=== PATIENT | female | born 1935 | race Caucasian/White ===

== ENCOUNTER → 2017-06-12 | Outpatient (CLI) | payer MEDICARE, OTHER ==
[2016-03-02 14:04] VITALS: BP 148/70
[~2017-06-12] MED LIST: AMLO5TAB4 PO; ASPI-482 PO; ATOR10TA PO; CARV25TA PO; CLON1PAT11 TD; Clonidine TD; DIPH25CA58 PO; FLUV40CA3 PO; GLIP5TAB10 PO; GLIP5TAB3 PO; INSU100I17 SQ; LISI40TA PO; Lisinopril PO; MULT-246 PO; Multivitamins,Therapeutic PO; SPIR25TA3 PO; TRIA1TAB PO
--- NOTE | 2017-06-14 09:26 | KCIC ---
CT abdomen/pelvis INDICATION: Evaluate cystic mass of pancreas. 1 year follow-up. TECHNIQUE: CT abdomen/pelvis without IV contrast with multiplanar reformats. COMPARISON: Previous CT abdomen/pelvis from 11/05/2015 FINDINGS: Limited study due to lack of IV contrast. Heart is normal in size. Trace pericardial effusion in the inferior aspect. No pleural effusion. Stable 2 mm nodule in the right lower lobe adjacent to major fissure (series 2 image 12). Low attenuating lesions seen in the segment 3 of the liver, stable. Another low attenuating lesion seen in segment 7, stable. 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 Noncontrast appearance of the spleen, gallbladder, kidneys is within normal limits. Stable low attenuating bilateral adrenal lesions, the largest on the right measuring 2.6 x 2.4 cm most likely adenomas. Pancreas is atrophic. No pancreatic calcifications. Lack of contrast severely limits evaluation of pancreas. Previously seen cystic lesions are not visualized on the current study. There are multiple peripancreatic lymph nodes, the largest in the pancreatic or duodenal groove measuring 3.0 x 1.5 cm, previously 2.4 x 1.2 cm. Gastrohepatic ligament recess lymph node measures 2.2 x 1.3 cm, previously 2.1 x 1.4 cm. Multiple other prominent parapancreatic lymph nodes noted. Colon is redundant with large amount of stool is seen in the colon. Sigmoid diverticulosis. Uterus is present with multiple calcified fibroids. No free pelvic fluid or adenopathy. Bladder is seen obvious without solid mass. Atherosclerotic disease of infrarenal aorta. Osteopenia of the bones. No suspicious bony lesion. Lower lumbar spine facet arthropathy. IMPRESSION: Highly suboptimal study due to lack of IV contrast. 1. Morphology of pancreas is not well delineated due to the atrophy. However, no discrete large cystic lesions in the pancreas. Underlying pancreatic mass not ruled out. MRI of abdomen without and with IV contrast is recommended. 2. Multiple peripancreatic lymph nodes, one of them showing interval increase in size. These are nonspecific and may be reactive. 3. Bilateral adrenal nodules compatible with adenomas. 4. Sigmoid diverticulosis without diverticulitis. Electronically signed by: Wil Barrios DO (06/13/2017 8:27 AM) [id number]
== END | disposition home or self-care (01) ==
LOC: KCIC CT 15:14
PROVIDERS: ATTEND Family Medicine
DX: K86.2 Cyst of pancreas (principal); K57.30 Diverticulosis of large intestine without perforation or abscess without bleeding; D36.7 Benign neoplasm of other specified sites
CPT/HCPCS: 74176

== ENCOUNTER → 2017-07-10 | Outpatient (CLI) | payer MEDICARE, OTHER ==
[2016-03-02 14:04] VITALS: BP 148/70
--- NOTE | 2017-07-10 16:05 | KCIC ---
CT of the head without contrast History:Spastic left hemiparesis Technique: Standard noncontrast images are obtained. Exposure: One or more of the following individualized dose reduction techniques were utilized for this examination: 1. Automated exposure control 2. Adjustment of the mA and/or kV according to patient size 3. Use of iterative reconstruction technique. Comparison: None Findings: Posterior fossa is unremarkable. No evidence of acute intracranial hemorrhage, mass effect, midline shift or abnormal extra-axial fluid collection. Johnson-white matter distinction is intact. Mild generalized atrophy. Mild vascular calcifications. Visualized orbits are unremarkable. Visualized paranasal sinuses and mastoids are clear. No acute calvarial abnormality Impression: No evidence of acute intracranial abnormality. Electronically signed by: Iron Rashid MD (07/10/2017 4:02 PM) [id number]
== END | disposition home or self-care (01) ==
LOC: KCIC CT 15:25
PROVIDERS: ATTEND Physical Medicine & Rehabilitation
DX: G81.94 Hemiplegia, unspecified affecting left nondominant side (principal); R25.2 Cramp and spasm
CPT/HCPCS: 70450

== ENCOUNTER → 2017-07-24 | Outpatient (CLI) | payer MEDICARE, OTHER ==
[2016-03-02 14:04] VITALS: BP 148/70
[2017-07-24] MEDS: GADOBUTROL 7.5 MMOL/7.5 ML VIAL IV ONE (16:25)
--- NOTE | 2017-07-24 17:16 | KCIC ---
MRI Brain with and without contrast History: Left hemiparesthesia, left-sided weakness for several months Technique: Multiplanar, multi sequential pre and postcontrast MR imaging was performed of the brain. Contrast: 6 cc Gadavist Comparison: None Findings: There is some motion degradation. There is no evidence of recent infarct or cytotoxic edema. Ventricular size is within normal limits. There is [id number] supratentorial atrophy more greatly affecting the parietal lobes. There is mild T2 and FLAIR hyperintense abnormality of the supratentorial periventricular white matter, also [id number] signal abnormality of the justina. There is no significant hemosiderin deposition of the brain parenchyma.There is no significant midline shift, intraaxial mass effect, or focal abnormal extra-axial fluid collection. There is no significant signal abnormality of the brain parenchyma. There is no nodular parenchymal or leptomeningeal enhancement. There is preservation of the major intracranial flow-voids at the skull base. The cerebellar tonsils are normal in location. There is no significant abnormality of the pineal gland or pituitary gland. Paranasal sinuses are overall aerated. The mastoid air cells are aerated. There is nonspecific mild heterogeneity of marrow signal of the nonexpanded clivus. Both globes are slightly misshapen posteriorly. Meckel's caves are somewhat dilated greater on the right. Impression: 1. There is no evidence of recent infarct or abnormal intracranial enhancement. Minimal T2 and FLAIR hyperintense abnormality of the supratentorial white matter and to a somewhat greater degree of the justina is nonspecific although most commonly due to chronic microvascular ischemic disease. There is ytqd-[id number] atrophy greater of the parietal lobes. 2. Both globes are somewhat misshapen posteriorly, question if eye pressures have been assessed? Electronically signed by: Bradley Anderson MD (07/24/2017 5:13 PM) [id number]
== END | disposition home or self-care (01) ==
LOC: KCIC MRI 15:30
PROVIDERS: ATTEND Physical Medicine & Rehabilitation
DX: I13.0 Hypertensive heart and chronic kidney disease with heart failure and stage 1 through stage 4 chronic kidney disease, or unspecified chronic kidney disease (principal); N18.9 Chronic kidney disease, unspecified; I50.9 Heart failure, unspecified; I99.8 Other disorder of circulatory system; R53.1 Weakness; R20.2 Paresthesia of skin
CPT/HCPCS: 70553; 82565; A9585

== ENCOUNTER → 2017-08-28 | Outpatient (CLI) | payer MEDICARE, OTHER ==
[2016-03-02 14:04] VITALS: BP 148/70
--- NOTE | 2017-08-28 17:17 | RAD ---
Left lower extremity venous ultrasound, 08/28/2017 : History: Left leg swelling Duplex evaluation including grayscale, color flow and spectral Doppler analysis was performed. The femoral and popliteal veins show no filling defects to suggest DVT. The visualized calf veins are unremarkable. IMPRESSION: There is no sonographic evidence of deep vein thrombosis in the left lower extremity
== END | disposition home or self-care (01) ==
LOC: US 15:54
PROVIDERS: ATTEND Physical Medicine & Rehabilitation
DX: M79.89 Other specified soft tissue disorders (principal)
CPT/HCPCS: 93971

== ENCOUNTER → 2018-02-28 | Outpatient (CLI) | payer MEDICARE, OTHER | END | disposition home or self-care (01) | DX: R91.8 Other nonspecific abnormal finding of lung field (principal); I13.0 Hypertensive heart and chronic kidney disease with heart failure and stage 1 through stage 4 chronic kidney disease, or unspecified chronic kidney disease; E11.22 Type 2 diabetes mellitus with diabetic chronic kidney disease; N18.3 Chronic kidney disease, stage 3 (moderate); E78.5 Hyperlipidemia, unspecified; E78.00 Pure hypercholesterolemia, unspecified; Z79.899 Other long term (current) drug therapy | CPT/HCPCS: 71045 ==

== ENCOUNTER 2018-04-04 17:09 | Emergency (ER) | payer MEDICARE, OTHER ==
[2018-04-04 18:20] LABS: ADD MAN DIFF? NO
[2018-04-04 18:23] LABS: BASO % 0 % (0-3); EOS # 0.1 x10^3/uL (0.0-0.7); EOS % 1 % (0-3); HEMATOCRIT 38.8 % (36.0-47.0); HEMOGLOBIN 13.1 g/dL (12.0-15.5); LYMPH # 1.3 x10^3/uL (1.0-4.8); LYMPH % 13 % (24-48); MEAN CORPUSCULAR HEMOGLOBIN 32 pg (25-35); MEAN CORPUSCULAR HGB CONC 34 g/dL (31-37); MEAN CORPUSCULAR VOLUME 96 fL (79-100); MONO # 1.1 x10^3/uL (0.0-1.1); MONO % 11 % (0-9); NEUT # 7.5 x10^3uL (1.8-7.7); NEUT % 75 % (31-73); PLATELET COUNT 227 x10^3/uL (140-400); RED BLOOD COUNT 4.04 x10^6/uL (3.50-5.40); RED CELL DISTRIBUTION WIDTH 14.9 % (11.5-14.5)
[2018-04-04 18:33] LABS: INR 1.1 (0.8-1.1)
[2018-04-04 18:41] LABS: ANION GAP 8 (6-14); BLOOD UREA NITROGEN 34 mg/dL (7-20); BUN/CREATININE RATIO 26 (6-20); CALCIUM 9.3 mg/dL (8.5-10.1); CARBON DIOXIDE 26 mmol/L (21-32); CHLORIDE 99 mmol/L (98-107); CREATININE 1.3 mg/dL (0.6-1.0); GLUCOSE 107 mg/dL (70-99); POTASSIUM 3.8 mmol/L (3.5-5.1); SODIUM 133 mmol/L (136-145)
[2018-04-04 18:46] LABS: ALBUMIN 3.7 g/dL (3.4-5.0); ALK PHOS 120 U/L (46-116); ALT (SGPT) 22 U/L (14-59); AST (SGOT) 20 U/L (15-37); TOTAL BILIRUBIN 0.5 mg/dL (0.2-1.0); TOTAL PROTEIN 7.5 g/dL (6.4-8.2)
== END 2018-04-04 21:16 | disposition home or self-care (01) ==
LOC: ER 17:09
DX: R60.1 Generalized edema (principal); E11.9 Type 2 diabetes mellitus without complications; I10 Essential (primary) hypertension
CPT/HCPCS: 36415; 80053; 85025; 85610; 93971; 99285-25

== ENCOUNTER → 2018-05-29 | Outpatient (CLI) | payer MEDICARE, OTHER ==
[2018-04-04 20:53] VITALS: BP 156/68
[~2018-05-29] MED LIST changes: +ATOR20TA58 PO; +FURO20TA3 PO; +LISI-130 PO; -LISI40TA PO; +METF500T9 PO; -SPIR25TA3 PO; +SPIR25TA5 PO
[2018-05-29 10:17] LABS: HEMATOCRIT 52.3 % (36.0-47.0); HEMOGLOBIN 18.2 g/dL (12.0-15.5); RED BLOOD COUNT 5.81 x10^6/uL (3.50-5.40); RED CELL DISTRIBUTION WIDTH 15.1 % (11.5-14.5); WHITE BLOOD COUNT 15.7 x10^3/uL (4.0-11.0)
[2018-05-29 10:35] LABS: CALCIUM 10.8 mg/dL (8.5-10.1); CREATININE 1.9 mg/dL (0.6-1.0); GFR 25.1
[2018-05-29 10:51] LABS: POTASSIUM 2.2 mmol/L (3.5-5.1)
[2018-05-30 01:16] LABS: HEMOGLOBIN A1C 7.4 % (4.8-5.6)
== END | disposition home or self-care (01) ==
LOC: SPEC 00:20
PROVIDERS: ATTEND Family Medicine
DX: I13.0 Hypertensive heart and chronic kidney disease with heart failure and stage 1 through stage 4 chronic kidney disease, or unspecified chronic kidney disease (principal); E11.22 Type 2 diabetes mellitus with diabetic chronic kidney disease; N18.3 Chronic kidney disease, stage 3 (moderate); I50.32 Chronic diastolic (congestive) heart failure; E78.00 Pure hypercholesterolemia, unspecified
CPT/HCPCS: 36415; 80048; 83036; 85027

== ENCOUNTER → 2018-06-01 | Outpatient (CLI) | payer MEDICARE, OTHER ==
[2018-04-04 20:53] VITALS: BP 156/68
[2018-06-01 06:17] LABS: CALCIUM 8.3 mg/dL (8.5-10.1); GFR 52.7
[2018-06-01 06:30] LABS: POTASSIUM 2.9 mmol/L (3.5-5.1)
== END | disposition home or self-care (01) ==
LOC: SPEC 05:26
PROVIDERS: ATTEND Family Medicine
DX: I13.0 Hypertensive heart and chronic kidney disease with heart failure and stage 1 through stage 4 chronic kidney disease, or unspecified chronic kidney disease (principal); E11.22 Type 2 diabetes mellitus with diabetic chronic kidney disease; N18.3 Chronic kidney disease, stage 3 (moderate); I50.9 Heart failure, unspecified; E78.00 Pure hypercholesterolemia, unspecified
CPT/HCPCS: 36415; 80048

== ENCOUNTER → 2018-06-03 | Outpatient (CLI) | payer MEDICARE, OTHER ==
[2018-04-04 20:53] VITALS: BP 156/68
[2018-06-03 06:13] LABS: CALCIUM 8.1 mg/dL (8.5-10.1); CREATININE 1.2 mg/dL (0.6-1.0); GFR 42.7; POTASSIUM 3.1 mmol/L (3.5-5.1)
== END | disposition home or self-care (01) ==
LOC: SPEC 02:19
PROVIDERS: ATTEND Family Medicine
DX: E78.5 Hyperlipidemia, unspecified (principal); I13.0 Hypertensive heart and chronic kidney disease with heart failure and stage 1 through stage 4 chronic kidney disease, or unspecified chronic kidney disease; E11.22 Type 2 diabetes mellitus with diabetic chronic kidney disease; I50.9 Heart failure, unspecified; N18.3 Chronic kidney disease, stage 3 (moderate); E78.00 Pure hypercholesterolemia, unspecified; Z80.0 Family history of malignant neoplasm of digestive organs; Z86.73 Personal history of transient ischemic attack (TIA), and cerebral infarction without residual deficits; Z88.8 Allergy status to other drugs, medicaments and biological substances
CPT/HCPCS: 36415; 80048

== ENCOUNTER → 2018-06-05 | Outpatient (CLI) | payer MEDICARE, OTHER ==
[2018-04-04 20:53] VITALS: BP 156/68
[2018-06-05 05:47] LABS: CALCIUM 8.6 mg/dL (8.5-10.1); CREATININE 1.2 mg/dL (0.6-1.0); GFR 42.7; POTASSIUM 3.5 mmol/L (3.5-5.1)
== END | disposition home or self-care (01) ==
LOC: SPEC 00:04
PROVIDERS: ATTEND Family Medicine
DX: E87.6 Hypokalemia (principal); I13.0 Hypertensive heart and chronic kidney disease with heart failure and stage 1 through stage 4 chronic kidney disease, or unspecified chronic kidney disease; E11.22 Type 2 diabetes mellitus with diabetic chronic kidney disease; I50.9 Heart failure, unspecified; N18.3 Chronic kidney disease, stage 3 (moderate); E78.5 Hyperlipidemia, unspecified; E78.00 Pure hypercholesterolemia, unspecified; Z79.899 Other long term (current) drug therapy; Z86.73 Personal history of transient ischemic attack (TIA), and cerebral infarction without residual deficits
CPT/HCPCS: 36415; 80048

== ENCOUNTER → 2018-06-20 | Outpatient (CLI) | payer MEDICARE, OTHER ==
[2018-04-04 20:53] VITALS: BP 156/68
[2018-06-20 15:51] LABS: BASO % 0 % (0-3); EOS # 0.1 x10^3/uL (0.0-0.7); EOS % 1 % (0-3); HEMATOCRIT 39.7 % (36.0-47.0); HEMOGLOBIN 13.7 g/dL (12.0-15.5); LYMPH # 1.2 x10^3/uL (1.0-4.8); LYMPH % 11 % (24-48); MEAN CORPUSCULAR HEMOGLOBIN 31 pg (25-35); MEAN CORPUSCULAR HGB CONC 34 g/dL (31-37); MEAN CORPUSCULAR VOLUME 89 fL (79-100); MONO % 10 % (0-9); NEUT % 78 % (31-73); PLATELET COUNT 335 x10^3/uL (140-400); RED BLOOD COUNT 4.45 x10^6/uL (3.50-5.40); RED CELL DISTRIBUTION WIDTH 16.7 % (11.5-14.5); WHITE BLOOD COUNT 10.3 x10^3/uL (4.0-11.0)
[2018-06-20 15:56] LABS: CREATININE 1.1 mg/dL (0.6-1.0); GFR 47.2
== END | disposition home or self-care (01) ==
LOC: SPEC 15:35
PROVIDERS: ATTEND Family Medicine
DX: R05 Cough (principal); I13.0 Hypertensive heart and chronic kidney disease with heart failure and stage 1 through stage 4 chronic kidney disease, or unspecified chronic kidney disease; E11.22 Type 2 diabetes mellitus with diabetic chronic kidney disease; I50.32 Chronic diastolic (congestive) heart failure; N18.3 Chronic kidney disease, stage 3 (moderate); E78.00 Pure hypercholesterolemia, unspecified; Z86.73 Personal history of transient ischemic attack (TIA), and cerebral infarction without residual deficits; Z72.0 Tobacco use; Z80.0 Family history of malignant neoplasm of digestive organs
CPT/HCPCS: 36415; 80048; 85025

== ENCOUNTER → 2018-06-20 | Outpatient (CLI) | payer MEDICARE ==
[2018-04-04 20:53] VITALS: BP 156/68
--- NOTE | 2018-06-20 17:31 | RAD ---
Portable chest, 06/20/2018: HISTORY: Cough and shortness of breath Comparison is made to a study from 02/28/2018. The patient is rotated to the left. A left-sided transvenous pacemaker is in place with 2 leads extending into the right heart. The heart is enlarged. There is calcific plaquing of the aorta. There are prominent pulmonary markings on the right the appearance suggests diffuse infiltrate, although patient rotation may be accentuating the appearance. The left lower chest has largely cleared since the previous study. There is mild residual blunting of the left lateral costophrenic angle which may be due to scarring or a small amount residual pleural fluid. No significant left lung infiltrate is seen. IMPRESSION: 1. Cardiomegaly and aortic atherosclerosis. 2. Mild diffuse right pulmonary infiltrates suggesting pneumonia versus unilateral pulmonary edema. Follow-up PA and lateral chest radiographs are suggested for further evaluation, if clinically indicated. 3. Improved aeration of the left base with possible minimal residual pleural fluid. Electronically signed by: Alonso Keen MD (06/20/2018 5:27 PM) [facility]
== END | disposition home or self-care (01) ==
LOC: RAD 14:49 → EDSTATUS 07-16 18:26
PROVIDERS: ATTEND Family Medicine
DX: I70.0 Atherosclerosis of aorta (principal); R91.8 Other nonspecific abnormal finding of lung field; I13.0 Hypertensive heart and chronic kidney disease with heart failure and stage 1 through stage 4 chronic kidney disease, or unspecified chronic kidney disease; E11.22 Type 2 diabetes mellitus with diabetic chronic kidney disease; I50.32 Chronic diastolic (congestive) heart failure; N18.3 Chronic kidney disease, stage 3 (moderate); Z86.73 Personal history of transient ischemic attack (TIA), and cerebral infarction without residual deficits; Z95.0 Presence of cardiac pacemaker; Z79.899 Other long term (current) drug therapy; Z88.8 Allergy status to other drugs, medicaments and biological substances; Z80.0 Family history of malignant neoplasm of digestive organs
CPT/HCPCS: 71045

== ENCOUNTER → 2018-06-24 | Outpatient (CLI) | payer MEDICARE ==
[2018-04-04 20:53] VITALS: BP 156/68
--- NOTE | 2018-06-24 16:36 | RAD ---
Portable chest, 06/24/2018: HISTORY: Cough Comparison is made to a study from 06/20/2018. A left-sided transvenous pacemaker remains in place with 2 leads extending into the right heart. Moderate cardiomegaly is unchanged. There is calcific plaquing the aorta. Increased right pulmonary markings persist. No left lung infiltrate is seen. There is blunting of the left lateral costophrenic angle which may be due to scarring or a small amount of pleural fluid. IMPRESSION: Persistent right lung infiltrates. Follow-up PA and lateral chest radiography versus CT scanning is suggested for further evaluation, if clinically indicated. Electronically signed by: Alonso Keen MD (06/24/2018 4:32 PM) [facility]
== END | disposition home or self-care (01) ==
LOC: RAD 09:23 → EDSTATUS 07-16 18:20
PROVIDERS: ATTEND Family Medicine
DX: R91.8 Other nonspecific abnormal finding of lung field (principal); I13.0 Hypertensive heart and chronic kidney disease with heart failure and stage 1 through stage 4 chronic kidney disease, or unspecified chronic kidney disease; E11.22 Type 2 diabetes mellitus with diabetic chronic kidney disease; I50.32 Chronic diastolic (congestive) heart failure; N18.3 Chronic kidney disease, stage 3 (moderate); E87.6 Hypokalemia; E78.5 Hyperlipidemia, unspecified; E78.00 Pure hypercholesterolemia, unspecified; Z85.828 Personal history of other malignant neoplasm of skin; Z88.8 Allergy status to other drugs, medicaments and biological substances
CPT/HCPCS: 71045

== ENCOUNTER → 2018-06-27 | Outpatient (CLI) | payer MEDICARE, OTHER ==
[2018-04-04 20:53] VITALS: BP 156/68
[2018-06-27 05:57] LABS: CALCIUM 9.7 mg/dL (8.5-10.1); GFR 52.7
[2018-06-27 06:02] LABS: POTASSIUM 2.7 mmol/L (3.5-5.1)
== END | disposition home or self-care (01) ==
LOC: SPEC 01:03
PROVIDERS: ATTEND Family Medicine
DX: R05 Cough (principal)
CPT/HCPCS: 36415; 80048

== ENCOUNTER → 2018-07-01 | Outpatient (CLI) | payer MEDICARE, OTHER ==
[2018-04-04 20:53] VITALS: BP 156/68
[2018-07-01 11:56] LABS: CALCIUM 9.7 mg/dL (8.5-10.1); CREATININE 1.2 mg/dL (0.6-1.0); GFR 42.7
[2018-07-01 12:08] LABS: POTASSIUM 2.3 mmol/L (3.5-5.1)
== END | disposition home or self-care (01) ==
LOC: SPEC 10:55 → EDSTATUS 07-16 18:30
PROVIDERS: ATTEND Family Medicine
DX: N17.9 Acute kidney failure, unspecified (principal)
CPT/HCPCS: 36415; 80048

== ENCOUNTER → 2018-07-04 | Outpatient (CLI) | payer MEDICARE, OTHER ==
[2018-04-04 20:53] VITALS: BP 156/68
[2018-07-04 06:20] LABS: CREATININE 1.2 mg/dL (0.6-1.0); GFR 42.7
== END | disposition home or self-care (01) ==
LOC: SPEC 01:43
PROVIDERS: ATTEND Family Medicine
DX: R05 Cough (principal); I13.0 Hypertensive heart and chronic kidney disease with heart failure and stage 1 through stage 4 chronic kidney disease, or unspecified chronic kidney disease; E11.22 Type 2 diabetes mellitus with diabetic chronic kidney disease; I50.32 Chronic diastolic (congestive) heart failure; N18.3 Chronic kidney disease, stage 3 (moderate); E78.5 Hyperlipidemia, unspecified; E78.00 Pure hypercholesterolemia, unspecified; Z86.73 Personal history of transient ischemic attack (TIA), and cerebral infarction without residual deficits; Z88.8 Allergy status to other drugs, medicaments and biological substances; Z80.0 Family history of malignant neoplasm of digestive organs
CPT/HCPCS: 36415; 80048

== ENCOUNTER → 2018-07-08 | Outpatient (CLI) | payer MEDICARE, OTHER ==
[2018-04-04 20:53] VITALS: BP 156/68
[2018-07-08 06:35] LABS: CALCIUM 9.5 mg/dL (8.5-10.1); CREATININE 1.1 mg/dL (0.6-1.0); GFR 47.2
[2018-07-08 06:41] LABS: POTASSIUM 2.9 mmol/L (3.5-5.1)
[2018-07-08 10:12] LABS: MAGNESIUM 1.5 mg/dL (1.8-2.4)
== END | disposition home or self-care (01) ==
LOC: SPEC 02:26
PROVIDERS: ATTEND Family Medicine
DX: E87.6 Hypokalemia (principal); I13.0 Hypertensive heart and chronic kidney disease with heart failure and stage 1 through stage 4 chronic kidney disease, or unspecified chronic kidney disease; E11.22 Type 2 diabetes mellitus with diabetic chronic kidney disease; I50.32 Chronic diastolic (congestive) heart failure; N18.3 Chronic kidney disease, stage 3 (moderate); E78.5 Hyperlipidemia, unspecified; E78.00 Pure hypercholesterolemia, unspecified; Z80.0 Family history of malignant neoplasm of digestive organs
CPT/HCPCS: 36415; 80048; 83735

== ENCOUNTER → 2018-07-11 | Outpatient (CLI) | payer MEDICARE, OTHER ==
[2018-04-04 20:53] VITALS: BP 156/68
[2018-07-11 06:09] LABS: CALCIUM 9.4 mg/dL (8.5-10.1); CREATININE 1.2 mg/dL (0.6-1.0); GFR 42.7; MAGNESIUM 1.7 mg/dL (1.8-2.4); POTASSIUM 4.1 mmol/L (3.5-5.1)
== END | disposition home or self-care (01) ==
LOC: SPEC 01:18
PROVIDERS: ATTEND Family Medicine
DX: E87.6 Hypokalemia (principal); I13.0 Hypertensive heart and chronic kidney disease with heart failure and stage 1 through stage 4 chronic kidney disease, or unspecified chronic kidney disease; E11.22 Type 2 diabetes mellitus with diabetic chronic kidney disease; I50.32 Chronic diastolic (congestive) heart failure; N18.3 Chronic kidney disease, stage 3 (moderate); E78.5 Hyperlipidemia, unspecified; E78.00 Pure hypercholesterolemia, unspecified; Z86.73 Personal history of transient ischemic attack (TIA), and cerebral infarction without residual deficits; Z80.0 Family history of malignant neoplasm of digestive organs
CPT/HCPCS: 36415; 80048; 83735

== ENCOUNTER → 2018-07-16 | Outpatient (CLI) | payer MEDICARE ==
[2018-04-04 20:53] VITALS: BP 156/68
--- NOTE | 2018-07-10 13:06 | RAD ---
Examination: CHEST PA LATERAL History: COUGH
2 WEEK FOLLOW UP Comparison/Correlation: 07/10/2018 two-view chest x-ray exam Findings: PA and lateral views of the chest were obtained. Dual lead left-sided pacemaker is present. Leads are intact and appear to be in place. Heart size is borderline to slightly enlarged. No pneumothorax. No focal consolidation. No pleural effusion. Bony structures are unremarkable. Impression: No active disease. Electronically signed by: Michael Kaufman MD (07/10/2018 1:02 PM) [facility]
== END | disposition home or self-care (01) ==
LOC: RAD 07-10 12:06 → EDSTATUS 17:06 → RAD 18:08
PROVIDERS: ATTEND Family Medicine
DX: R05 Cough (principal); I13.0 Hypertensive heart and chronic kidney disease with heart failure and stage 1 through stage 4 chronic kidney disease, or unspecified chronic kidney disease; E11.22 Type 2 diabetes mellitus with diabetic chronic kidney disease; I50.9 Heart failure, unspecified; N18.9 Chronic kidney disease, unspecified; N17.9 Acute kidney failure, unspecified; E78.5 Hyperlipidemia, unspecified; Z95.0 Presence of cardiac pacemaker
CPT/HCPCS: 71046

== ENCOUNTER → 2018-08-23 | Outpatient (CLI) | payer MEDICARE, OTHER ==
[2018-04-04 20:53] VITALS: BP 156/68
[2018-08-23 08:57] LABS: BASO % 0 % (0-3); EOS # 0.3 x10^3/uL (0.0-0.7); EOS % 3 % (0-3); HEMATOCRIT 39.9 % (36.0-47.0); HEMOGLOBIN 13.4 g/dL (12.0-15.5); LYMPH # 1.6 x10^3/uL (1.0-4.8); LYMPH % 19 % (24-48); MEAN CORPUSCULAR HEMOGLOBIN 32 pg (25-35); MEAN CORPUSCULAR HGB CONC 34 g/dL (31-37); MEAN CORPUSCULAR VOLUME 96 fL (79-100); MONO # 0.8 x10^3/uL (0.0-1.1); MONO % 9 % (0-9); NEUT # 5.7 x10^3uL (1.8-7.7); NEUT % 68 % (31-73); PLATELET COUNT 204 x10^3/uL (140-400); RED BLOOD COUNT 4.17 x10^6/uL (3.50-5.40); RED CELL DISTRIBUTION WIDTH 15.3 % (11.5-14.5); WHITE BLOOD COUNT 8.5 x10^3/uL (4.0-11.0)
[2018-08-23 09:15] LABS: CALCIUM 9.3 mg/dL (8.5-10.1); CREATININE 1.2 mg/dL (0.6-1.0); GFR 42.7
[2018-08-23 09:17] LABS: POTASSIUM 2.8 mmol/L (3.5-5.1)
== END | disposition home or self-care (01) ==
LOC: SPEC 08:40
PROVIDERS: ATTEND Family Medicine
DX: I13.0 Hypertensive heart and chronic kidney disease with heart failure and stage 1 through stage 4 chronic kidney disease, or unspecified chronic kidney disease (principal); E11.22 Type 2 diabetes mellitus with diabetic chronic kidney disease; I50.9 Heart failure, unspecified; N18.3 Chronic kidney disease, stage 3 (moderate)
CPT/HCPCS: 36415; 80048; 85025

== ENCOUNTER → 2018-08-28 | Outpatient (CLI) | payer MEDICARE ==
[2018-04-04 20:53] VITALS: BP 156/68
[2018-08-28 07:42] LABS: CREATININE 1.3 mg/dL (0.6-1.0); GFR 38.9; POTASSIUM 3.6 mmol/L (3.5-5.1)
== END | disposition home or self-care (01) ==
LOC: SPEC 00:07 → EDSTATUS 08-29 16:29
PROVIDERS: ATTEND Family Medicine
DX: E87.6 Hypokalemia (principal)
CPT/HCPCS: 36415; 80048

== ENCOUNTER → 2018-09-09 | Outpatient (CLI) | payer MEDICARE ==
[2018-04-04 20:53] VITALS: BP 156/68
[2018-09-09 11:42] LABS: CALCIUM 9.3 mg/dL (8.5-10.1); CREATININE 1.4 mg/dL (0.6-1.0); GFR 35.7; POTASSIUM 4.8 mmol/L (3.5-5.1)
== END | disposition home or self-care (01) ==
LOC: SPEC 11:01
PROVIDERS: ATTEND Family Medicine
DX: E11.8 Type 2 diabetes mellitus with unspecified complications (principal); Z79.84 Long term (current) use of oral hypoglycemic drugs
CPT/HCPCS: 36415; 80048

== ENCOUNTER → 2018-09-16 | Outpatient (CLI) | payer MEDICARE ==
[2018-04-04 20:53] VITALS: BP 156/68
[2018-09-16 06:22] LABS: CALCIUM 9.8 mg/dL (8.5-10.1); CREATININE 1.6 mg/dL (0.6-1.0); GFR 30.6; POTASSIUM 4.7 mmol/L (3.5-5.1)
== END | disposition home or self-care (01) ==
LOC: SPEC 01:55
PROVIDERS: ATTEND Family Medicine
DX: I13.0 Hypertensive heart and chronic kidney disease with heart failure and stage 1 through stage 4 chronic kidney disease, or unspecified chronic kidney disease (principal); E11.22 Type 2 diabetes mellitus with diabetic chronic kidney disease; I50.32 Chronic diastolic (congestive) heart failure; N18.3 Chronic kidney disease, stage 3 (moderate)
CPT/HCPCS: 36415; 80048

== ENCOUNTER → 2018-09-23 | Outpatient (CLI) | payer MEDICARE ==
[2018-04-04 20:53] VITALS: BP 156/68
[2018-09-23 06:20] LABS: CALCIUM 9.7 mg/dL (8.5-10.1); CREATININE 1.6 mg/dL (0.6-1.0); GFR 30.6; POTASSIUM 4.3 mmol/L (3.5-5.1)
== END | disposition home or self-care (01) ==
LOC: SPEC 02:33
PROVIDERS: ATTEND Family Medicine
DX: I13.0 Hypertensive heart and chronic kidney disease with heart failure and stage 1 through stage 4 chronic kidney disease, or unspecified chronic kidney disease (principal); E11.22 Type 2 diabetes mellitus with diabetic chronic kidney disease; I50.32 Chronic diastolic (congestive) heart failure; N18.3 Chronic kidney disease, stage 3 (moderate); E78.5 Hyperlipidemia, unspecified
CPT/HCPCS: 36415; 80048

== ENCOUNTER → 2018-10-18 | Outpatient (CLI) | payer MEDICARE ==
[2018-04-04 20:53] VITALS: BP 156/68
[2018-10-18 12:13] LABS: ALBUMIN 3.6 g/dL (3.4-5.0); ALBUMIN/GLOBULIN RATIO 0.8 (1.0-1.7); CREATININE 1.8 mg/dL (0.6-1.0); GFR 26.7; MAGNESIUM 2.1 mg/dL (1.8-2.4); POTASSIUM 4.3 mmol/L (3.5-5.1); TOTAL BILIRUBIN 0.5 mg/dL (0.2-1.0); TOTAL PROTEIN 7.9 g/dL (6.4-8.2)
== END | disposition home or self-care (01) ==
LOC: SPEC 09:48
PROVIDERS: ATTEND Family Medicine
DX: E11.22 Type 2 diabetes mellitus with diabetic chronic kidney disease (principal); I13.0 Hypertensive heart and chronic kidney disease with heart failure and stage 1 through stage 4 chronic kidney disease, or unspecified chronic kidney disease; N18.9 Chronic kidney disease, unspecified; I50.9 Heart failure, unspecified; R60.0 Localized edema; E46 Unspecified protein-calorie malnutrition; E78.5 Hyperlipidemia, unspecified; J45.998 Other asthma; Z95.0 Presence of cardiac pacemaker
CPT/HCPCS: 36415; 80053; 83735

== ENCOUNTER → 2019-01-07 | Outpatient (CLI) | payer MEDICARE ==
[2018-04-04 20:53] VITALS: BP 156/68
[2019-01-07 19:01] LABS: BILIRUBIN,URINE NEGATIVE (NEG); CLARITY,URINE CLEAR; COLOR,URINE YELLOW; NITRITE,URINE NEGATIVE (NEG); PH,URINE 6.5; PROTEIN,URINE NEGATIVE (NEG-TRACE); UROBILINOGEN,URINE 0.2 mg/dL (0.2 mg/dL)
[2019-01-07 19:02] LABS: BASO % 0 % (0-3); EOS # 0.1 x10^3/uL (0.0-0.7); EOS % 1 % (0-3); HEMATOCRIT 46.4 % (36.0-47.0); HEMOGLOBIN 15.6 g/dL (12.0-15.5); LYMPH # 1.7 x10^3/uL (1.0-4.8); LYMPH % 16 % (24-48); MEAN CORPUSCULAR HEMOGLOBIN 33 pg (25-35); MEAN CORPUSCULAR HGB CONC 34 g/dL (31-37); MEAN CORPUSCULAR VOLUME 99 fL (79-100); MONO # 0.9 x10^3/uL (0.0-1.1); MONO % 8 % (0-9); NEUT # 7.9 x10^3uL (1.8-7.7); NEUT % 75 % (31-73); PLATELET COUNT 229 x10^3/uL (140-400); RED BLOOD COUNT 4.68 x10^6/uL (3.50-5.40); RED CELL DISTRIBUTION WIDTH 15.1 % (11.5-14.5); WHITE BLOOD COUNT 10.6 x10^3/uL (4.0-11.0)
[2019-01-07 19:08] LABS: CALCIUM 9.5 mg/dL (8.5-10.1); CREATININE 1.6 mg/dL (0.6-1.0); GFR 30.6; POTASSIUM 5.6 mmol/L (3.5-5.1)
[2019-01-07 19:10] LABS: BACTERIA,URINE FEW /HPF (0-FEW); HYALINE CASTS, URINE FEW /HPF; RBC,URINE OCC /HPF (0-2); SQUAMOUS EPITHELIAL CELL,UR MOD /LPF
== END | disposition home or self-care (01) ==
PROVIDERS: ATTEND Family Medicine
DX: R82.79 Other abnormal findings on microbiological examination of urine (principal); R53.83 Other fatigue
CPT/HCPCS: 36415; 80048; 81001; 85025; 87086

== ENCOUNTER → 2019-01-28 | Outpatient (CLI) | payer MEDICARE ==
[2018-04-04 20:53] VITALS: BP 156/68
[2019-01-29 03:10] LABS: HEMOGLOBIN A1C 6.8 % (4.8-5.6)
== END | disposition home or self-care (01) ==
LOC: SPEC 01:55
PROVIDERS: ATTEND Family Medicine
DX: E11.44 Type 2 diabetes mellitus with diabetic amyotrophy (principal); Z79.84 Long term (current) use of oral hypoglycemic drugs
CPT/HCPCS: 36415; 83036

== ENCOUNTER → 2019-03-25 | Outpatient (CLI) | payer MEDICARE ==
[2018-04-04 20:53] VITALS: BP 156/68
[2019-03-25 06:50] LABS: BASO % 0 % (0-3); EOS # 0.1 x10^3/uL (0.0-0.7); EOS % 1 % (0-3); HEMATOCRIT 45.5 % (36.0-47.0); HEMOGLOBIN 15.2 g/dL (12.0-15.5); LYMPH # 1.9 x10^3/uL (1.0-4.8); LYMPH % 22 % (24-48); MEAN CORPUSCULAR HEMOGLOBIN 34 pg (25-35); MEAN CORPUSCULAR HGB CONC 34 g/dL (31-37); MEAN CORPUSCULAR VOLUME 101 fL (79-100); MONO # 0.9 x10^3/uL (0.0-1.1); MONO % 10 % (0-9); NEUT % 67 % (31-73); PLATELET COUNT 169 x10^3/uL (140-400); RED BLOOD COUNT 4.51 x10^6/uL (3.50-5.40); RED CELL DISTRIBUTION WIDTH 13.7 % (11.5-14.5); WHITE BLOOD COUNT 8.9 x10^3/uL (4.0-11.0)
[2019-03-25 07:00] LABS: CALCIUM 9.9 mg/dL (8.5-10.1); CREATININE 1.8 mg/dL (0.6-1.0); GFR 26.7
[2019-03-25 07:03] LABS: POTASSIUM 5.4 mmol/L (3.5-5.1)
== END | disposition home or self-care (01) ==
LOC: SPEC 00:02
PROVIDERS: ATTEND Family Medicine
DX: I87.2 Venous insufficiency (chronic) (peripheral) (principal)
CPT/HCPCS: 36415; 80048; 83880; 85025

== ENCOUNTER → 2019-03-27 | Outpatient (CLI) | payer MEDICARE ==
[2018-04-04 20:53] VITALS: BP 156/68
[2019-03-27 00:13] LABS: BASO % 0 % (0-3); EOS # 0.1 x10^3/uL (0.0-0.7); EOS % 1 % (0-3); HEMATOCRIT 41.5 % (36.0-47.0); LYMPH # 1.9 x10^3/uL (1.0-4.8); LYMPH % 21 % (24-48); MEAN CORPUSCULAR HEMOGLOBIN 34 pg (25-35); MEAN CORPUSCULAR HGB CONC 34 g/dL (31-37); MEAN CORPUSCULAR VOLUME 101 fL (79-100); MONO % 11 % (0-9); NEUT # 6.3 x10^3uL (1.8-7.7); NEUT % 67 % (31-73); PLATELET COUNT 191 x10^3/uL (140-400); RED BLOOD COUNT 4.13 x10^6/uL (3.50-5.40); RED CELL DISTRIBUTION WIDTH 13.3 % (11.5-14.5); WHITE BLOOD COUNT 9.5 x10^3/uL (4.0-11.0)
== END | disposition home or self-care (01) ==
LOC: SPEC 00:04
PROVIDERS: ATTEND Family Medicine
DX: E11.44 Type 2 diabetes mellitus with diabetic amyotrophy (principal); E11.22 Type 2 diabetes mellitus with diabetic chronic kidney disease; I13.0 Hypertensive heart and chronic kidney disease with heart failure and stage 1 through stage 4 chronic kidney disease, or unspecified chronic kidney disease; N18.3 Chronic kidney disease, stage 3 (moderate); I50.9 Heart failure, unspecified; N17.9 Acute kidney failure, unspecified; E78.5 Hyperlipidemia, unspecified
CPT/HCPCS: 36415; 85025; 87880

== ENCOUNTER 2019-07-05 | Emergency (ER) | payer MEDICARE ==
[~2019-07-05] MED LIST changes: +METF500T11 PO; -METF500T9 PO
--- NOTE | 2019-07-05 02:11 | PHYS DOC ---
Adult General Chief Complaint Chief Complaint: CPR/FULL ARREST HPI HPI Patient is a 84 year old group home patient who presents with unresponsiveness, agonal respiration and pulseless on ED arrival. Patient was found agonal respirations per group home staff. given assisted ventilation per EMS via [id number]-[id number]. Patient with no spontaneous respirations peripheral are definitive peripheral pulse on ED arrival. Patient was paced rhythm on monitor. Patient has an out of hospital signed DNR in place [] Review of Systems Review of Systems ROS as per HPI All other systems were reviewed and found to be within normal limits, except as documented in this note. Allergies Allergies Allergies Coded Allergies Type Severity Reaction Last Updated Verified hydrochlorothiazide Allergy Unknown 07/05/19 Yes nitrofurantoin Allergy Unknown 07/05/19 Yes Physical Exam Physical Exam Constitutional: Pale, unresponsive, assisted bag valve respirations. EMS.. [] HENT: Normocephalic, atraumatic, bilateral external ears normal, oropharynx moist, no oral exudates, nose normal. [] Eyes: Dilated, fixed. [] Neck: Soft. [] Cardiovascular: No heart noises appreciated.[] Lungs & Thorax: Equal breath sounds laterally [] Abdomen: Bowel sounds normal, soft. [] Neurologic: GCS 3. [] EKG EKG [] Radiology/Procedures Radiology/Procedures [] Course & Med Decision Making Course & Med Decision Making Pertinent Labs and Imaging studies reviewed. (See chart for details) [DNR order confirmed. No cardiac contractility on CXR. Patient pronounced at 00:12] Dragon Disclaimer Dragon Disclaimer This electronic medical record was generated, in whole or in part, using a voice recognition dictation system. Departure Departure Impression: Primary Impression: Cardiopulmonary arrest Disposition: 20 Condition: Referrals: UNKNOWN PCP NAME (PCP) MLITON HIGUERA DO Jul 05, 2019 02:11
== END 2019-07-05 01:32 | disposition expired ==
LOC: MERGE → ER
DX: I46.9 Cardiac arrest, cause unspecified (principal); Z88.8 Allergy status to other drugs, medicaments and biological substances
CPT/HCPCS: 99285-25